=== PATIENT | male | born 1930 | race Caucasian/White ===

== ENCOUNTER → 2018-09-16 | Outpatient (CLI) | payer OTHER ==
[~2018-09-16] MED LIST: GADOBUTROL 10 MMOL/10 ML VIAL IV ONE
--- NOTE | 2018-09-16 12:00 | NUR ---
Pt to MRI for outpt procedure. Pt has a pacemaker and a [employer] rep changed the necessary settings for the MRI. Pt was monitored throughout and no changes to HR or O2 Sat. [employer]
--- NOTE | 2018-09-16 15:43 | RAD ---
MRI of the brain without contrast 09/16/2018 Clinical History: Syncope and weakness. Technique: Unenhanced T1-weighted sagittal and axial, T2-weighted axial and coronal and FLAIR, gradient echo and diffusion-weighted axial images of the brain were obtained. Findings: No previous imaging studies are available for comparison. Images from the study are degraded by patient motion. There is generalized parenchymal atrophy. Patchy, confluent and multiple small focal areas of increased signal intensity are seen within the periventricular and subcortical white matter of both cerebral hemispheres on the FLAIR and T2-weighted images consistent with areas of small vessel ischemic disease. No acute parenchymal abnormality is seen. No extra-axial fluid collection is seen. There is no MRI evidence of acute ischemia/infarction. Mild mucosal thickening in seen scattered throughout the paranasal sinuses. There are minimal bilateral mastoid effusions. Normal flow voids are seen within the major vascular structures surrounding the brain parenchyma. Impression: No acute parenchymal abnormality is seen. Electronically signed by: Shadi Junior MD (09/16/2018 3:40 PM) [id number]
--- NOTE | 2018-09-16 15:45 | RAD ---
MRA of the brain without contrast 09/16/2018 Clinical History: Weakness and syncope. Technique: Using 3-D time of flight techniques, a MRA of the major arterial structures surrounding the [place] was performed. Findings: Comparison is made to patient's MRI of the brain performed concurrently with this examination. MRA images of the anterior and posterior circulations are within normal limits. No area of stenosis or occlusion is seen. No intracranial aneurysm is seen. Impression: Negative study. Electronically signed by: Shadi Junior MD (09/16/2018 3:42 PM) [id number]
--- NOTE | 2018-09-16 15:51 | RAD ---
MRA of the Neck without and with Contrast 09/16/2018 Clinical History: Weakness and syncope. Technique: Using 2D time of flight techniques, a MRA of the carotid and vertebral arterial structures within the neck was performed. 3D MIP images were generated in multiple projections for a MRA. Findings: Mild atheromatous plaque formation is seen involving the carotid bifurcations and proximal internal carotid arteries bilaterally. No hemodynamically significant stenosis is seen involving the common or internal carotid arteries within the neck. 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 The vertebral arteries are codominant. Both vertebral arteries demonstrate normal antegrade flow. No area stenosis or occlusion is seen. Impression: 1. Mild atheromatous plaque formation is seen involving both carotid bifurcations. No hemodynamically significant stenosis is seen involving either common or internal carotid artery within the neck. 2. 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 Stenosis calculation for MRA are based on measurement of the distal internal carotid artery diameter in accordance with the NASCET methodology. Electronically signed by: Shadi Junior MD (09/16/2018 3:48 PM) [email or web address]
== END | disposition home or self-care (01) ==
LOC: MRI 10:06
PROVIDERS: ATTEND Internal Medicine
DX: H74.8X3 Other specified disorders of middle ear and mastoid, bilateral (principal); I70.8 Atherosclerosis of other arteries; I63.9 Cerebral infarction, unspecified
CPT/HCPCS: 70544; 70549; 70551; A9585